=== PATIENT | male | born 1995 | race Caucasian/White ===

== ENCOUNTER 2020-01-16 13:14 | Emergency (ER) | payer OTHER ==
[2020-01-16 13:46] VITALS: BP 123/80; PULSE 77; RESP 18; TEMP 98.4
--- NOTE | 2020-01-16 14:23 | XR ---
EXAMINATION TYPE: XR shoulder complete RT, XR humerus RT DATE OF EXAM: 01/16/2020 CLINICAL HISTORY: Pain after fall injury. TECHNIQUE: Three views of the right shoulder are obtained. 2 views right humerus. COMPARISON: None. FINDINGS: There is no acute fracture/dislocation evident in the right shoulder. There is however ac pamela displaced fracture middle one third right clavicle. The acromioclavicular and glenohumeral joint spaces appear within normal limits. The visualized ribs are intact and unremarkable. No acute fracture or dislocation in the right humerus. Visualized right elbow joint appears within no rmal limits. Overlying soft tissue is unremarkable. IMPRESSION: There is acute comminuted displaced fracture middle one third right clavicle partially i ada on these studies.
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
== END 2020-01-16 15:28 | disposition home or self-care (01) ==
LOC: EC 13:14
DX: S42.001A Fracture of unspecified part of right clavicle, initial encounter for closed fracture (principal); S80.211A Abrasion, right knee, initial encounter; S50.311A Abrasion of right elbow, initial encounter; V00.131A Fall from skateboard, initial encounter; Y92.89 Other specified places as the place of occurrence of the external cause
CPT/HCPCS: 99283

== ENCOUNTER 2020-05-11 18:47 | Emergency (ER) | payer OTHER ==
[2020-05-11 18:58] VITALS: BP 112/73; PULSE 72; RESP 20; TEMP 97.7
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
== END 2020-05-11 20:26 | disposition home or self-care (01) ==
LOC: EC 18:47
DX: S00.81XA Abrasion of other part of head, initial encounter (principal); V99.XXXA Unspecified transport accident, initial encounter
CPT/HCPCS: 70450; 99284